=== PATIENT | male | born 1950 | race Two or more races ===

== ENCOUNTER 2021-06-17 11:08 | Outpatient (CLI) | payer OTHER | END 2021-06-17 11:11 | disposition home or self-care (01) | LOC: RAD 11:08 | PROVIDERS: ATTEND Orthopaedic Surgery | DX: M25.561 Pain in right knee (principal); M25.551 Pain in right hip; M25.552 Pain in left hip; M54.59 Other low back pain; M25.562 Pain in left knee ==

== ENCOUNTER 2021-08-07 09:54 | Outpatient (CLI) | payer OTHER | END 2021-08-07 09:58 | disposition home or self-care (01) | LOC: RAD 09:54 | PROVIDERS: ATTEND Orthopaedic Surgery | DX: M54.59 Other low back pain (principal); Z76.89 Persons encountering health services in other specified circumstances ==

== ENCOUNTER 2021-09-02 08:09 | Outpatient (CLI) | payer OTHER | END 2021-09-02 15:13 | disposition home or self-care (01) | LOC: LAB 08:09 | PROVIDERS: ATTEND Orthopaedic Surgery | DX: D64.9 Anemia, unspecified (principal); E88.9 Metabolic disorder, unspecified; D68.8 Other specified coagulation defects; N39.0 Urinary tract infection, site not specified; A49.02 Methicillin resistant Staphylococcus aureus infection, unspecified site; E11.9 Type 2 diabetes mellitus without complications; I10 Essential (primary) hypertension; I49.9 Cardiac arrhythmia, unspecified; Z76.89 Persons encountering health services in other specified circumstances ==